=== PATIENT | female | born 1990 | race Caucasian/White ===

== ENCOUNTER 2023-11-19 11:42 | Day surgery (SDC) | payer OTHER, SELFPAY ==
[2023-11-19] VITALS (14 sets, daily range): BP systolic 88–117; BP diastolic 49–82; PULSE 50–94; RESP 8–18; TEMP 36.1–37.1; O2SAT 95–100; BMI 18.8
--- NOTE | 2023-11-19 05:32 | W.PM.OPSFHP ---
Same Day Surgery H&P Indication for Procedure/HPI DATE OF PROCEDURE: November 19, 2023 CHIEF COMPLAINT/INDICATIONFOR SURGICAL PROCEDURE: right Bartholin's cyst PREOP DIAGNOSIS: right Bartholin's cyst PLANNED PROCEDURE: Operation Date: 11/19/23 13:40 Proposed Procedures p Excision Mass/Lesion/Cyst(Not Applicable) - Sudarshan Vargas MD 33 y.o. h/o intermittent right vulvar swelling and pain x eight months Medications/Allergies* Home Medications Medication Instructions Recorded Confirmed Type estradiol 0.025 mg/24 hr transdermal 11/17/23 11/17/23 History semiweekly transdermal patch Allergies/Adverse Reactions Allergy/AdvReac Type Severity Reaction Status Date / Time No Known Allergies Allergy Verified 11/17/23 14:22 Pertinent History/Comorbid Conditions* Family History (Updated 11/17/23 @ 14:16 by Arlette Valle LPN) Ovarian cancer Mother Grandmother Diabetes Grandfather Denies family history of Colon cancer Prostate cancer Heart disease Breast cancer Hypertension Uterine cancer Thyroid disease Stroke Social History Smoking and tobacco/nicotine status: never used tobacco/nicotine Pertinent Exam Findings alert, oriented x 3, clear to auscultation bilaterally and regular rate & rhythm Recommendations Surgery/Procedure today Coding Level of Care Code Acute Code for Chg Fwd Time Spent (min) 20
--- NOTE | 2023-11-19 12:01 | ANES.PREANE2 ---
Pre-Anesthetic Assessment Height/Weight: Height 1.7 m Preop Diagnosis: right Bartholin's cyst Operation Date: 11/19/23 13:40 Proposed Procedures p Excision Mass/Lesion/Cyst(Not Applicable) - Sudarshan Vargas MD Familial anesthetic complications: None Was Beta Sawyer taken within 24 hours: N/A Was Clonidine taken within 24 hours: N/A Last intake: > 8hrs Social No alcohol and No tobacco Exam alert, oriented x 3, clear to auscultation bilaterally and regular rate & rhythm Airway Dentition: full Anesthetic Plan ASA status: 1 Anesthesia: General Risk of > 500 ml blood loss (7ml/kg in children): No Medications/Allergies Home Medications Medication Instructions Recorded Confirmed Last Taken Type estradiol 0.025 mg/24 hr transdermal 11/17/23 11/17/23 Unknown History semiweekly transdermal patch progesterone micronized 100 mg 100 mg PO BEDTIME 11/19/23 11/19/23 11/18/23 History capsule Allergies Allergy/AdvReac Type Severity Reaction Status Date / Time No Known Allergies Allergy Verified 11/17/23 14:22 [facility] Anesthesia Family History Grandfather Diabetes Mother Ovarian cancer Grandmother Ovarian cancer Denies family history of Colon cancer Prostate cancer Heart disease Breast cancer Hypertension Uterine cancer Thyroid disease Stroke Social History Smoking and tobacco/nicotine status: never used tobacco/nicotine Data Anesthesia Cardiac Studies: No Data to Display
[2023-11-19] MEDS: midazolam 1 mg/mL INJ 2 mL 2 MG IVP ×2 (12:19→12:27)
[2023-11-19] MEDS: scopolamine 1.5 Patch 1 PATCH TRANSDERMA (12:19)
--- NOTE | 2023-11-19 12:21 | W.PM.OPSUD ---
Surgery/Procedure H&P Update DATE OF PROCEDURE: November 19, 2023 DATE H&P PERFORMED: 11/17/23 H&P UPDATE INFORMATION: I have reviewed H&P completed within last 30 days, I have examined patient prior to procedure and No changes to prior documentation PREOP DIAGNOSIS: right Bartholin's cyst PLANNED PROCEDURE: Operation Date: 11/19/23 13:40 Proposed Procedures p Excision Mass/Lesion/Cyst(Not Applicable) - Sudarshan Vargas MD
[2023-11-19 12:31] LABS: OR HCG Qualitative Urine Negative (Negative)
--- NOTE | 2023-11-19 13:50 | P.OP_ITS ---
Operative Report Date of procedure: November 19, 2023 Pre-op diagnosis: right Bartholin's cyst Post-op diagnosis: same Post-op findings: 5 x 7 cm Right Bartholin?s gland cyst Procedure done: incision, drainage and packing of Right Bartholin?s gland cyst Implants: none Specimens removed/disposition: none Surgeon: Sudarshan Vargas MD Anesthesia: MAC Estimated blood loss (mL): 5 Complications: none Findings: Right Bartholin?s gland cyst moderate amount of mucoid material cyst cavity 5 x 7 cm Condition: stable Disposition: PACU Brief History: 33 y.o. with right Bartholin's gland cyst Procedure: Informed consent was obtained for incision, drainage, and packing of right Bartholin?s gland cyst. The patient was taken to the OR and placed on table. Anesthesia was induced. Patient was then placed in dorsolithotomy position. The perineum was prepped and draped in the usual sterile fashion. A 5 x 7 cm right Bartholin?s cyst was identified. A 2 cm incision was made on the vaginal surface of the cyst. Immediately, moderate amount of mucoid material was obtained. The cyst cavity was explored and loculations cleared. Betadine, 20 cc, was used to irrgate the cyst cavity. A 0.5-inch iodoform was then used to pack the cyst cavity. Small amount of bleeding from the edge of the incision was controlled with bovie, pr essure, and 3-O chromic. The patient was then placed supine, awakened, and taken to the RR in good condition. Postoperative condition: good Blood loss: 5 cc Complications: none Sponge and instrument counts correct x two
[2023-11-19] MEDS: fentaNYL 50 mcg/mL INJ 2mL IVP ×2 (14:03→14:46)
[2023-11-19] MEDS: oxyCODONE-APAP 5-325 mg Tablet 1 TAB PO (15:34)
== END 2023-11-19 15:56 | disposition home or self-care (01) ==
PROVIDERS: Visit Provider Obstetrics & Gynecology
PROC: (CPT 56420; principal; 2023-11-19 13:30)
DX: N75.0 Cyst of Bartholin's gland (principal)
CPT/HCPCS: 56420; 81025; J1100; J1885; J2250; J2405; J2704; J3010; J3490

== ENCOUNTER → 2024-03-02 13:38 | Outpatient (BNVA) | payer OTHER, SELFPAY | PROVIDERS: Visit Provider Obstetrics & Gynecology | DX: R39.9 Unspecified symptoms and signs involving the genitourinary system (principal) | CPT/HCPCS: 81000; 87086 ==

== ENCOUNTER → 2025-03-16 12:02 | Outpatient (BNVA) | payer OTHER, SELFPAY | PROVIDERS: Visit Provider Nurse Practitioner Women's Health | DX: Z01.419 Encounter for gynecological examination (general) (routine) without abnormal findings (principal); N93.9 Abnormal uterine and vaginal bleeding, unspecified; N92.6 Irregular menstruation, unspecified | CPT/HCPCS: 80053; 82306; 82670; 83001; 83002; 83036; 83520; 84144; 84146; 84402; 84403; 84443; 85025 ==

== ENCOUNTER → 2025-03-28 13:39 | Outpatient (BNVA) | payer OTHER, SELFPAY | PROVIDERS: Visit Provider Nurse Practitioner Women's Health | DX: N85.8 Other specified noninflammatory disorders of uterus (principal); N83.02 Follicular cyst of left ovary; N83.01 Follicular cyst of right ovary | CPT/HCPCS: 76830 ==